=== PATIENT | female | born 2000 | race Caucasian/White ===

== ENCOUNTER 2021-06-04 22:25 | Emergency (ER) | payer MEDICAID ==
[~2021-06-04] VITALS: Ht 167.6 cm; Wt 57.0 kg
[2021-06-04] MEDS ORDERED: HYDROCODONE/ACETAMINOPHEN 5/325MG TABLET PO STA (22:57)
[2021-06-05] MEDS ORDERED: ONDANSETRON HCL 4MG/2ML INJ IV STA (01:01)
[2021-06-05] MEDS ORDERED: MORPHINE SULFATE 4 MG/ML CPJ (NOT FOR IM USE) IV STA (01:01)
[2021-06-05 01:45] VITALS: BP 122/78
[2021-06-05] MEDS ORDERED: IBUP-2029 MT (01:58)
[2021-06-05] MEDS ORDERED: MORPHINE SULFATE 10 MG/ML CPJ IM ONE (02:15)
== END 2021-06-05 02:26 | disposition home or self-care (01) ==
LOC: ER 22:25
DX: S82.891A Other fracture of right lower leg, initial encounter for closed fracture (principal); V49.49XA Driver injured in collision with other motor vehicles in traffic accident, initial encounter; Y93.89 Activity, other specified; Y92.89 Other specified places as the place of occurrence of the external cause; Y99.8 Other external cause status
CPT/HCPCS: 71045; 73590; 73610; 73630; 81025; 96372; 96374; 96375; 99284; J2270; J2405; Z7610